=== PATIENT | female | born 1960 | race Caucasian/White ===

== ENCOUNTER 2017-03-11 10:42 | Emergency (ER) | payer MEDICAID ==
[~2017-03-11] VITALS: Ht 147.3 cm; Wt 71.5 kg
[2017-03-11 10:45] VITALS: Ht 147.3 cm; Wt 71.5 kg
[2017-03-11 11:53] LABS: ADD UMIC YES; UR ASCORBIC ACID NEGATIVE (NEGATIVE); UR BACTERIA FEW /HPF (NONE SEEN); UR BILIRUBIN (Dip) NEGATIVE (NEGATIVE); UR BLOOD (Dip) 1+ mg/dL (NEGATIVE); UR CLARITY SLIGHTLY CLOUDY (CLEAR); UR COLOR YELLOW (YELLOW); UR GLUCOSE (Dip) NEGATIVE (NEGATIVE); UR KETONES (Dip) NEGATIVE (NEGATIVE); UR LEUKOCYTE ESTERASE (Dip) NEGATIVE Leu/ul (NEGATIVE); UR NITRITE (Dip) NEGATIVE (NEGATIVE); UR RBC 1 /HPF (0-5); UR SPECIFIC GRAVITY (Dip) 1.013 (1.003-1.030); UR SQUAMOUS EPITHELIAL CELL FEW /HPF (FEW); UR TOTAL PROTEIN (Dip) NEGATIVE (NEGATIVE); UR UROBILINOGEN (Dip) NEGATIVE (NEGATIVE)
--- NOTE | 2017-03-11 12:00 | RADRPT ---
PROCEDURE: CT Abdomen and Pelvis without contrast. CLINICAL INDICATION: Abdominal pain. TECHNIQUE: CT scan of the abdomen and pelvis without contrast was performed on a multidetector hig h-resolution CT scanner. The patient was scanned without intravenous contrast. Coronal and sagittal reformatted images were obtained from the axial source images. Images were reviewed on a high-resol [employer] PACS workstation. The total exam CTDI equals 13.3 mGy and the total exam DLP equals 715.48 mGy -cm. One or the following dose reduction techniques were used: -Automated exposure control. -Adjustment of the mA and/or KV according to patient's size. -Use of iterative reconstruction technique. COMPARISON: None. FINDINGS: Lung Bases: Unremarkable. GI:. Unremarkable. Liver: Unremarkable. Gallbladder: There is cholelithiasis without evidence of biliary tree dilatation. Pancreas: Unremarkable. Spleen: Unremarkablel Adrenals: 1.1 cm low density left adrenal nodule. Kidneys: There is right-sided nephrolithiasis without evidence of ureterolithiasis or obstructive ur opathy. There is a 1.6 cm fat density exophytic mass along the superior aspect of the right kidney. Bladder: Unremarkable. Pelvic Organs: Unremarkable. Skeleton: Normal for age. Other: There is an small umbilical hernia containing fat and a moderate size supra umbilical hernia containing fat. IMPRESSION: 1. Cholelithiasis without evidence of biliary tree dilatation. 2. Right-sided urolithiasis without evidence of ureterolithiasis or obstructive uropathy. 3. 1.6 cm exophytic mass in the superior pole right kidney which is fat density and likely represen ts an angiomyolipoma. 4. 1.1 cm homogeneously low density left adrenal nodule. This is likely an adrenal adenoma. 5. Scattered fecal residue. 6. Normal-appearing vermiform appendix visualized. 7. Moderate sized supra umbilical hernia containing fat. RPTAT: [facility] Physician Efren Date Time Electronically viewed and signed by Physician Efren on 03/11/2017 11:59 /
[2017-03-11 12:03] LABS: ALBUMIN 4.1 g/dl (3.3-4.9); ALBUMIN/GLOBULIN RATIO 1.28; BILIRUBIN,INDIRECT 0.3 mg/dl (0-1.1); BILIRUBIN,TOTAL 0.3 mg/dl (0.2-1.3); CREATININE 0.93 mg/dl (0.44-1.00); POTASSIUM 4.1 mmol/L (3.5-5.1); TOTAL PROTEIN 7.3 g/dl (6.1-8.1)
[2017-03-11 12:29] LABS: BASOPHIL # 0.1 10^3/ul (0.0-0.1); BASOPHILS % 0.9 % (0.0-2.0); EOSINOPHILS # 0.1 10^3/ul (0.0-0.5); EOSINOPHILS % 1.7 % (0.0-7.0); HEMATOCRIT 39.5 % (37.0-47.0); HEMOGLOBIN 13.3 g/dl (12.0-16.0); LYMPHOCYTES # 2.6 10^3/ul (0.8-2.9); LYMPHOCYTES % 40.4 % (15.0-51.0); MEAN CORPUSCULAR HEMOGLOBIN 29.3 pg (29.0-33.0); MEAN CORPUSCULAR HGB CONC 33.7 g/dl (32.0-37.0); MONOCYTE # 0.5 10^3/ul (0.3-0.9); MONOCYTES % 7.2 % (0.0-11.0); NEUTROPHIL # 3.2 10^3/ul (1.6-7.5); NEUTROPHILS % 49.5 % (39.0-77.0); PLATELET COUNT 296 10^3/UL (140-415); RED BLOOD COUNT 4.54 10^6/ul (4.20-5.40); RED CELL DISTRIBUTION WIDTH 12.6 % (11.5-14.5); WHITE BLOOD COUNT 6.5 10^3/ul (4.8-10.8)
--- NOTE | 2017-03-11 12:41 | ERD ---
ER Documentation Chief Complaint Date/Time DATE: 03/11/17 TIME: 12:38 Chief Complaint umbilical hernia pain x 8 days HPI This is a 57-year-old female with a history of umbilical hernia who presents to the emergency room for evaluation of abdominal pain for the past 8 days. The patient localizes her pain to the midportion of abdomen and was concerned because she noted a slight mass on the left portion of her abdomen. She denies any fevers, chills, diarrhea associated with this and came to the emergency room today for evaluation ROS All systems reviewed and are negative except as per history of present illness. Medications Home Meds No Active Prescriptions or Reported Meds Allergies Allergies: Coded Allergies: No Known Allergy (Unverified , 03/11/17) PMhx/Soc History of Surgery: Yes ( x3, Cholecystectomy) Anesthesia Reaction: No Hx Neurological Disorder: No Hx Respiratory Disorders: No Hx Cardiac Disorders: No Hx Psychiatric Problems: No Hx Miscellaneous Medical Probl: No Hx Alcohol Use: No Hx Substance Use: No Hx Tobacco Use: No Smoking Status: Never smoker Physical Exam Vitals Vital Signs Date Time Temp Pulse Resp B/P Pulse Ox O2 Delivery O2 Flow Rate FiO2 03/11/17 10:45 98.9 80 18 125/60 99 Physical Exam INITIAL VITAL SIGNS: Reviewed by me GENERAL: The patient is well developed and appropriate for usual state of health in no apparent distress HEENT: Pupils equal, round, and reactive to light. EOMI. There is no scleral icterus. NECK: C-spine is soft and supple, there is no meningismus. There is no cervical lymphadenopathy. LUNGS: Clear to auscultation bilaterally. There are no rales, wheezes or rhonchi. HEART: Regular rate and rhythm, no murmurs, clicks, rubs or gallops. ABDOMEN: Umbilical hernia noted, reducible, no discoloration, soft, non-tender, non-distended. There are bowel sounds in all four quadrants. No rebound or guarding. EXTREMITIES: There is no peripheral cyanosis or edema. No focal swelling or erythema. NEUROLOGICAL: The patient moves all four extremities with 5/5 strength. Cranial nerves II - XII are intact. Normal gait. Alert and oriented SKIN: There is no apparent rash or petechiae. HEME/LYMPHATIC: There is no evidence of excessive bruising or lymphedema. PSYCHIATRIC: The patient does not appear anxious or depressed. Result Diagram: 03/11/17 1123 03/11/17 1123 Results 24 hrs Laboratory Tests Test 03/11/17 11:23 White Blood Count 6.510^3/ul Red Blood Count 4.5410^6/ul Hemoglobin 13.3g/dl Hematocrit 39.5% Mean Corpuscular Volume 87.0fl Mean Corpuscular Hemoglobin 29.3pg Mean Corpuscular Hemoglobin Concent 33.7g/dl Red Cell Distribution Width 12.6% Platelet Count 21744^3/UL Mean Platelet Volume 11.0fl Neutrophils % 49.5% Lymphocytes % 40.4% Monocytes % 7.2% Eosinophils % 1.7% Basophils % 0.9% Nucleated Red Blood Cells % 0.0/100WBC Neutrophils # 3.210^3/ul Lymphocytes # 2.610^3/ul Monocytes # 0.510^3/ul Eosinophils # 0.110^3/ul Basophils # 0.110^3/ul Nucleated Red Blood Cells # 0.010^3/ul Urine Color YELLOW Urine Clarity SLIGHTLY CLOUDY Urine pH 5.0 Urine Specific [place] 1.013 Urine Ketones NEGATIVEmg/dL Urine Nitrite NEGATIVEmg/dL Urine Bilirubin NEGATIVEmg/dL Urine Urobilinogen NEGATIVEmg/dL Urine Leukocyte Esterase NEGATIVELeu/ul Urine Microscopic RBC 1/HPF Urine Microscopic WBC 3/HPF Urine Squamous Epithelial Cells FEW/HPF Urine Bacteria FEW/HPF Urine Hemoglobin 1+mg/dL Urine Glucose NEGATIVEmg/dL Urine Total Protein NEGATIVEmg/dl Sodium Level 145mmol/L Potassium Level 4.1mmol/L Chloride Level 110mmol/L Carbon Dioxide Level 28mmol/L Anion Gap 11 Blood Urea Nitrogen 16mg/dl Creatinine 0.93mg/dl Glucose Level 84mg/dl Calcium Level 9.0mg/dl Total Bilirubin 0.3mg/dl Direct Bilirubin 0.00mg/dl Indirect Bilirubin 0.3mg/dl Aspartate Amino Transf (AST/SGOT) 17IU/L Alanine Aminotransferase (ALT/SGPT) 33IU/L Alkaline Phosphatase 108IU/L Total Protein 7.3g/dl Albumin 4.1g/dl Globulin 3.20g/dl Albumin/Globulin Ratio 1.28 Lipase 47U/L Procedures/MDM CT abdomen pelvis without: 1. Cholelithiasis without evidence of biliary tree dilatation. 2. Right-sided urolithiasis without evidence of ureterolithiasis or obstructive uropathy. 3. 1.6 cm exophytic mass in the superior pole right kidney which is fat density and likely represents an angiomyolipoma. 4. 1.1 cm homogeneously low density left adrenal nodule. This is likely an adrenal adenoma. 5. Scattered fecal residue. 6. Normal-appearing vermiform appendix visualized. 7. Moderate sized supra umbilical hernia containing fat. This 37-year-old female presents to the ER for evaluation of abdominal pain. The patient does have a history of umbilical hernia. Did not appear incarcerated on my examination however she was concerned about a lump that she fall just lateral to it. Patient underwent a CT of the abdomen and pelvis which does not show any tumors however she does have a mass in the superior pole of the kidney. The patient was notified of this mass. The patient stated that she would like to get her hernia repaired. I advised her that because it is not emergent I will give her referral for outpatient general surgery. The patient is okay to plan of care and will be discharged at this time. She was given morphine for pain and has no pain on my reevaluation. Departure Diagnosis: Primary Impression: Abdominal pain Additional Impression: Umbilical hernia Condition: Stable MARILU GUADARRAMA DO Mar 11, 2017 12:41
== END 2017-03-11 13:43 | disposition home or self-care (01) ==
LOC: E/R 10:42
DX: K42.9 Umbilical hernia without obstruction or gangrene (principal)
CPT/HCPCS: 36415; 74176; 80053; 81001; 83690; 85025; Z7502; Z7610

== ENCOUNTER 2017-04-15 14:18 | Emergency (ER) | END 2017-04-15 16:57 | disposition home or self-care (01) | DX: J02.0 Streptococcal pharyngitis (principal) | CPT/HCPCS: 96372; J1885; Z7502; Z7610 ==

== ENCOUNTER 2017-08-31 01:29 | Inpatient (IN) | END 2017-09-02 20:55 | disposition home or self-care (01) | DRG 445 ==

== ENCOUNTER 2018-11-14 11:50 | Emergency (ER) | payer OTHER ==
[~2018-11-14] VITALS: Ht 167.6 cm; Wt 66.6 kg
[~2018-11-14 11:50] MED LIST: CEPH-443 PO; CIPR500T4 PO; CLOT30CR24 TOP; MELO15TA30 PO; METR500T PO; SULF1TAB31 PO; ZOLP5TAB7 PO
[2018-11-14 12:09] VITALS: Ht 167.6 cm; Wt 66.6 kg
[2018-11-14] MEDS ORDERED: HYDROCODONE/APAP (5/325) TAB PO ONE (13:30)
[2018-11-14] MEDS ORDERED: NAPR-985 PO (15:10)
[2018-11-14] MEDS ORDERED: HYDR-4011 PO (15:10)
[2018-11-14] MEDS ORDERED: DOCU-144 PO (15:10)
--- NOTE | 2018-11-14 15:21 | ERD ---
ER Documentation Chief Complaint Chief Complaint trip and fall c/o lower back pain no KO HPI 58-year-old female presenting with a back pain. Patient had trip and fall down some stairs and has pain to the sacral region. She denies any numbness or tingling down her legs. She denies any head injury or loss of consciousness. She has not taken medications for symptoms. Denies other medical problems. NKDA. Surgical history denies. Social history denies ROS All systems reviewed and are negative except as per history of present illness. Medications Home Meds Active Scripts Naproxen* (Naprosyn*) 500 Mg Tablet, 500 MG PO BID PRN for PAIN AND/OR INFLAMMATION, #30 TAB Prov:WILLIAMS GRANADOS PA-C 11/14/18 Docusate Sodium* (Colace*) 100 Mg Capsule, 100 MG PO TID, #30 CAP Prov:WILLIAMS GRANADOS PA-C 11/14/18 Hydrocodone/Acetaminophen ([facility] 5-325 Tablet) 1 Each Tablet, 1 TAB PO Q6H PRN for PAIN, #7 TAB Prov:WILLIAMS GRANADOS PA-C 11/14/18 Sulfamethoxazole/Trimethoprim* (Bactrim Ds* Tablet) 1 Each Tablet, 1 TAB PO BID for 7 Days, #14 TAB Prov:FILI FRY PA-C 07/13/18 Cephalexin* (Keflex*) 500 Mg Capsule, 500 MG PO QID for 7 Days, CAP Prov:FILI FRY PA-C 07/13/18 Clotrimazole* (Clotrimazole* AF) 1% - 30 Gm Cream.gm., 1 APPLIC TOP BID for 28 Days, TUB Prov:FILI FRY PA-C 07/13/18 Metronidazole* (Flagyl*) 500 Mg Tablet, 500 MG PO Q8 for 7 Days, #21 TAB Prov:ALLI HANNON. 09/02/17 Ciprofloxacin Hcl* (Ciprofloxacin Hcl*) 500 Mg Tablet, 500 MG PO BID, #14 TAB Prov:ALLI HANNON. 09/02/17 Reported Medications Zolpidem Tartrate* (Zolpidem Tartrate*) 5 Mg Tablet, 5 MG PO QHS PRN for INSOMNI A, #30 TAB 08/30/17 Meloxicam* (Mobic*) 15 Mg Tablet, 15 MG PO DAILY, #30 TAB 08/30/17 Allergies Allergies: Coded Allergies: No Known Allergy (Unverified , 08/30/17) PMhx/Soc History of Surgery: Yes (hernia repair, c section, abdominal sx(exploratory)) Anesthesia Reaction: No Hx Neurological Disorder: No Hx Respiratory Disorders: No Hx Cardiac Disorders: No Hx Psychiatric Problems: No Hx Miscellaneous Medical Probl: No Hx Alcohol Use: No Hx Substance Use: No Hx Tobacco Use: No FmHx Family History: No diabetes, No coronary disease, No other Physical Exam Vitals Vital Signs Date Temp Pulse Resp B/P (MAP) Pulse Ox O2 O2 Flow FiO2 Time Delivery Rate 11/14/18 98.6 84 18 133/65 97 12:09 (87) Physical Exam GENERAL: The patient is well-appearing, well-nourished, in no acute distress CHEST: Clear to auscultation bilaterally. There are no rales, wheezes or rhonchi. HEART: Regular rate and rhythm. No murmurs, clicks, rubs or gallops. ABDOMEN:Soft, nontender and nondistended. Good bowel sounds. No rebound or guarding. No gross peritonitis. No gross organomegaly or masses. BACK: No midline or flank tenderness. To palpation over left hip and sacrum. EXTREMITIES: Equal pulses bilaterally. There is no peripheral clubbing, cyanosis or edema. No focal swelling or erythema. Full range of motion. Grossly neurovascularly intact. NEUROLOGIC: Alert and oriented. Cranial nerves II through XII intact. Motor strength in all 4 extremities with 5 out of 5 strength. Sensation grossly intact. Normal speech and gait. Babinski negative. DTR 2+ throughout. SKIN: There is no apparent rash or petechiae. The skin is warm and dry. Results 24 hrs Current Medications Medications Dose Sig/Aren Start Time Status Last (Trade) Ordered Route PRN Stop Time Admin Dose Reason Admin 1 tab ONCE ONCE 11/14/18 DC 11/14/18 Acetaminophen PO 13:30 13:34 / 11/14/18 13:31 Hydrocodone Bitart ([facility] (5/325)) Procedures/MDM DIAGNOSTIC IMAGING REPORT Patient: REDD IVEY : 1960 Age: 58 Sex: F MR #: [id number] DOS: 11/14/18 1301 Ordering MD: TATA GRANADOS PA-C Location: [facility] Room/Bed: PROCEDURE: XR Cervical Spine. CLINICAL INDICATION: Neck pain. TECHNIQUE: Three views of the cervical spine were performed. Frontal, lateral, and AP open-mouth odontoid. The images were reviewed on a PACS workstation. COMPARISON: None. FINDINGS: There is straightening of the normal cervical lordosis. There is no acute fracture or dislocation. 2 mm anterolisthesis at C5-C6 is noted. There are multilevel mild discogenic disease of cervical spine with decreased disk spaces and osteophytosis most pronounced at C5-C6 to C7-T1. No significant prevertebral soft tissue swelling is noted. IMPRESSION: 1. No acute cervical spine fracture. 2. Multilevel mild discogenic disease of cervical spine, most pronounced at C5-C6 through C7-T1. 3. Straightening of the normal cervical lordosis. 2 mm anterolisthesis at C5- C6. DIAGNOSTIC IMAGING REPORT Patient: REDD IVEY : 1960 Age: 58 Sex: F MR #: [id number] DOS: 11/14/18 1301 Ordering MD: TATA GRANADOS PA-C Location: [facility] Room/Bed: PROCEDURE: XR Hip. CLINICAL INDICATION: hip pain TECHNIQUE: AP and frog lateral views of the left hip were performed. COMPARISON: None. FINDINGS: No acute fracture or dislocation. Mild degenerate joint disease with small marline tabular osteophyte formation. No erosions. No focal soft tissue abnormality. IMPRESSION: No acute fracture or dislocation. DIAGNOSTIC IMAGING REPORT Patient: REDD IVEY : 1960 Age: 58 Sex: F MR #: [id number] DOS: 11/14/18 1301 Ordering MD: TATA GRANADOS PA-C Location: [facility] Room/Bed: PROCEDURE: XR Sacrum and Coccyx. CLINICAL INDICATION: back pain TECHNIQUE: AP and lateral views of the sacrum and coccyx were performed. COMPARISON: No prior studies are available for comparison. FINDINGS: There is step-off at the tip of the coccyx, however this is age indeterminate. Otherwise no fracture. No diastases of the joint spaces. Soft tissues are unremarkable. IMPRESSION: Irregularities / step-off near the tip of the coccyx. This is age indeterminate, but could represent an acute fracture of there is tenderness in that area. MDM: 58-year-old female presenting with back pain. I have low suspicion for location of the lumbar spine however patient has concerning findings noted on the coccyx. Patient does have some pain over the coccyx patient likely has a small acute fracture. I have low suspicion for cauda equina, I have low suspicion for neuro deficit. I have low suspicion for other acute fractures or dislocation. Patient is discharged with supportive medications. Patient is told symptoms change or worsen to return immediately to the ER. All questions answered at discharge Departure Diagnosis: Primary Impression: Fractured coccyx Additional Impression: Fall Condition: Stable Patient Instructions: Tailbone (Coccyx) Fracture, Fall, Uncertain Cause Additional Instructions: FOLLOW UP WITH YOUR PRIMARY CARE PHYSICIAN TOMORROW.Return to this facility if you are not improving as expected. WILLIAMS GRANADOS PA-C Nov 14, 2018 15:21
[2018-11-14] MEDS ORDERED: LORAZEPAM 0.5 MG TAB PO ONE (15:30)
[2018-11-14 15:42] VITALS: BP 163/73; PULSE 68; RESP 16
== END 2018-11-14 15:43 | disposition home or self-care (01) ==
LOC: FTE 11:50
DX: S32.2XXA Fracture of coccyx, initial encounter for closed fracture (principal); W10.9XXA Fall (on) (from) unspecified stairs and steps, initial encounter; Y92.9 Unspecified place or not applicable
CPT/HCPCS: 72040; 72220; 73510; Z7502; Z7610